=== PATIENT | male | born 1970 | race African-American/Black ===

== ENCOUNTER 2022-03-26 17:37 | Emergency (ER) | payer OTHER, SELFPAY ==
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
[2022-03-26 17:50] VITALS: BP 129/88; PULSE 80; RESP 20; O2SAT 94
[2022-03-26 18:04] VITALS: TEMP 36.6
[2022-03-26 19:05] LABS: Ethanol 448 mg/dL (<10)
== END 2022-03-26 19:50 ==
PROVIDERS: Emergency Provider Physician Assistant
DX: Z04.1 Encounter for examination and observation following transport accident (principal); F10.129 Alcohol abuse with intoxication, unspecified; Y90.8 Blood alcohol level of 240 mg/100 ml or more; M47.812 Spondylosis without myelopathy or radiculopathy, cervical region; V47.5XXA Car driver injured in collision with fixed or stationary object in traffic accident, initial encounter
CPT/HCPCS: 36415; 70450; 72125; 80307; 99284